=== PATIENT | female | born 1970 | race African-American/Black ===

== ENCOUNTER → 2017-02-10 | Outpatient (CLI) | payer OTHER ==
[2017-02-10 17:59] LABS: BLOOD UREA NITROGEN 33 mg/dL (9-23); CALCIUM SERUM 9.8 mg/dL (8.4-10.2); CARBON DIOXIDE 35 mmol/L (22-31); CHLORIDE 99 mmol/L (100-111); GLOM FILT RATE Estimated ABOVE60 mL/min (>60); GLUCOSE FASTING 100 mg/dL (70-110); MAGNESIUM 2.4 mg/dL (1.6-3.0); PHOSPHOROUS 4.8 mg/dL (2.5-4.6); POTASSIUM 4.1 mmol/L (3.5-5.1); SODIUM 140 mmol/L (135-145)
== END | disposition home or self-care (01) ==
LOC: CLAB 16:39
PROVIDERS: Internal Medicine Gastroenterology
DX: E83.42 Hypomagnesemia (principal); E86.0 Dehydration; E83.39 Other disorders of phosphorus metabolism
CPT/HCPCS: 36415; 80048; 83735; 84100

== ENCOUNTER → 2017-02-23 | Outpatient (CLI) | payer OTHER ==
[2017-02-23 15:26] LABS: BUN/CREATININE RATIO 36.66; CREATININE SERUM 0.9 mg/dL (0.6-1.4); GLOM FILT RATE Estimated 88.9 mL/min (>60); MAGNESIUM 2.1 mg/dL (1.6-3.0); POTASSIUM 3.7 mmol/L (3.5-5.1)
== END | disposition home or self-care (01) ==
LOC: CLAB 14:35
PROVIDERS: Internal Medicine Gastroenterology
DX: E83.42 Hypomagnesemia (principal); E86.0 Dehydration; E83.39 Other disorders of phosphorus metabolism
CPT/HCPCS: 36415; 80048; 83735; 84100

== ENCOUNTER → 2017-03-10 | Outpatient (CLI) | payer OTHER ==
[2017-03-10 16:48] LABS: ALBUMIN SERUM 4.2 g/dL (3.5-5.0); BILIRUBIN,TOTAL 0.6 mg/dL (0.2-2.0); CALCIUM SERUM 9.9 mg/dL (8.4-10.2); GLOM FILT RATE Estimated 78.3 mL/min (>60); POTASSIUM 3.8 mmol/L (3.5-5.1); PREALBUMIN 32.6 mg/dL (17.0-42.0); PROTEIN TOTAL SERUM 7.8 g/dL (6.0-8.3)
[2017-03-10 17:48] LABS: HEMATOCRIT 31.5 % (35.0-45.0); HEMOGLOBIN 10.1 gm/dL (12.0-16.0)
== END | disposition home or self-care (01) ==
LOC: CLAB 15:02
PROVIDERS: Internal Medicine Gastroenterology
DX: K31.84 Gastroparesis (principal)
CPT/HCPCS: 36415; 80053; 83036; 84134; 85014; 85018; 85240; 85384; 85652; 86140; 87070

== ENCOUNTER → 2017-03-22 | Outpatient (CLI) | payer OTHER ==
[2017-03-22 19:38] LABS: HEMATOCRIT 30.9 % (35.0-45.0); HEMOGLOBIN 9.8 gm/dL (12.0-16.0)
[2017-03-22 19:55] LABS: ALBUMIN SERUM 4.8 g/dL (3.5-5.0); BILIRUBIN,TOTAL 0.6 mg/dL (0.2-2.0); BUN/CREATININE RATIO 28.88; CALCIUM SERUM 10.2 mg/dL (8.4-10.2); CREATININE SERUM 0.9 mg/dL (0.6-1.4); GLOM FILT RATE Estimated 88.9 mL/min (>60); POTASSIUM 3.2 mmol/L (3.5-5.1); PREALBUMIN 28.6 mg/dL (17.0-42.0); PROTEIN TOTAL SERUM 9.2 g/dL (6.0-8.3)
== END | disposition home or self-care (01) ==
LOC: CLAB 18:54
PROVIDERS: Internal Medicine Gastroenterology
DX: K31.84 Gastroparesis (principal)
CPT/HCPCS: 36415; 80053; 83036; 84134; 85014; 85018; 85240; 85384; 85652; 86140; 87070

== ENCOUNTER → 2017-04-28 | Outpatient (CLI) | payer OTHER ==
[2017-04-28 15:15] LABS: HEMOGLOBIN 11.3 gm/dL (12.0-16.0)
[2017-04-28 16:10] LABS: ALBUMIN SERUM 4.7 g/dL (3.5-5.0); BILIRUBIN,TOTAL 1.1 mg/dL (0.2-2.0); BUN/CREATININE RATIO 32.22; CALCIUM SERUM 10.1 mg/dL (8.4-10.2); CREATININE SERUM 0.9 mg/dL (0.6-1.4); GLOM FILT RATE Estimated 88.9 mL/min (>60); POTASSIUM 3.5 mmol/L (3.5-5.1); PREALBUMIN 33.4 mg/dL (17.0-42.0); PROTEIN TOTAL SERUM 8.8 g/dL (6.0-8.3)
== END | disposition home or self-care (01) ==
LOC: CLAB 14:04
PROVIDERS: Internal Medicine Gastroenterology
DX: K31.84 Gastroparesis (principal)
CPT/HCPCS: 36415; 80053; 83036; 84134; 85014; 85018; 85240; 85384; 85652; 86140; 87070

== ENCOUNTER → 2017-05-12 | Outpatient (CLI) | payer OTHER ==
[2017-05-12 17:16] LABS: HEMATOCRIT 35.7 % (35.0-45.0); HEMOGLOBIN 11.5 gm/dL (12.0-16.0)
[2017-05-12 17:31] LABS: ALBUMIN SERUM 4.8 g/dL (3.5-5.0); BILIRUBIN,TOTAL 0.5 mg/dL (0.2-2.0); BUN/CREATININE RATIO 40.9; CALCIUM SERUM 9.7 mg/dL (8.4-10.2); CREATININE SERUM 1.1 mg/dL (0.6-1.4); GLOM FILT RATE Estimated 69.7 mL/min (>60); POTASSIUM 3.7 mmol/L (3.5-5.1); PREALBUMIN 33.6 mg/dL (17.0-42.0); PROTEIN TOTAL SERUM 8.7 g/dL (6.0-8.3)
== END | disposition home or self-care (01) ==
LOC: CLAB 16:33
PROVIDERS: Internal Medicine Gastroenterology
DX: K31.84 Gastroparesis (principal)
CPT/HCPCS: 36415; 80053; 83036; 84134; 85014; 85018; 85240; 85384; 85652; 86140; 87070